=== PATIENT | male | born 1945 | race Caucasian/White ===

== ENCOUNTER 2018-05-10 08:40 | Day surgery (SDC) | payer MEDICARE, MEDICAID ==
[2018-05-10] MEDS ORDERED: Lactated Ringer's 500 ML IV ONE (09:11)
[2018-05-10] MEDS ORDERED: Propofol 10 mg/ml Inj (20 ML) ONE (09:59)
[2018-05-10 11:04] VITALS: TEMP 97
[2018-05-10 11:13] VITALS: BP 109/61; PULSE 63; RESP 14; O2SAT 100
== END 2018-05-10 12:00 | disposition home or self-care (01) ==
LOC: H.ENDO 08:40
PROVIDERS: ATTEND Internal Medicine Gastroenterology
DX: Z12.11 Encounter for screening for malignant neoplasm of colon (principal); E11.9 Type 2 diabetes mellitus without complications; E78.5 Hyperlipidemia, unspecified; I10 Essential (primary) hypertension; K64.8 Other hemorrhoids; K57.30 Diverticulosis of large intestine without perforation or abscess without bleeding
CPT/HCPCS: 45378; 82948; J2001; J2704; J7120